=== PATIENT | female | born 1980 | race Caucasian/White ===

== ENCOUNTER 2017-05-10 09:26 | Inpatient (IN) | payer MEDICAID ==
[2017-05-10] MEDS ORDERED: MISOPROSTOL 200 MCG TAB PR ×2 (10:00→15:30)
[2017-05-10] MEDS ORDERED: CARBOPROST 250 MCG INJ IM ×2 (10:00→15:30)
[2017-05-10] MEDS ORDERED: METHYLERGONOVINE 0.2 MG INJ IM ×2 (10:00→15:30)
[2017-05-10 10:14] LABS: ADD MAN DIFF? NO
[2017-05-10 10:17] LABS: BASOPHILS % 0.2 % (0.0-2.0); EOSINOPHILS % 0.2 % (0.0-7.0); HEMATOCRIT 39.5 % (37.0-47.0); HEMOGLOBIN 13.5 g/dl (12.0-16.0); LYMPHOCYTES # 1.3 10^3/ul (0.8-2.9); LYMPHOCYTES % 9.8 % (15.0-51.0); MEAN CORPUSCULAR HEMOGLOBIN 30.9 pg (29.0-33.0); MEAN CORPUSCULAR HGB CONC 34.2 g/dl (32.0-37.0); MEAN CORPUSCULAR VOLUME 90.4 fl (82.0-101.0); MEAN PLATELET VOLUME 10.5 fl (7.4-10.4); MONOCYTE # 0.6 10^3/ul (0.3-0.9); MONOCYTES % 4.6 % (0.0-11.0); NEUTROPHIL # 11.2 10^3/ul (1.6-7.5); NEUTROPHILS % 84.6 % (39.0-77.0); PLATELET COUNT 192 10^3/UL (140-415); RED BLOOD COUNT 4.37 10^6/ul (4.20-5.40); RED CELL DISTRIBUTION WIDTH 13.3 % (11.5-14.5)
[2017-05-10 10:17] LABS: WHITE BLOOD COUNT 13.2 10^3/ul (4.8-10.8)
[2017-05-10] MEDS: LACTATED RINGER'S 1,000 ML IV ×3 (10:18→23:13)
[2017-05-10] MEDS ORDERED: TERBUTALINE 1 MG/ML INJ SC (10:30)
[2017-05-10] MEDS ORDERED: ONDANSETRON 4 MG INJ ×2 (10:35→11:03)
[2017-05-10] MEDS ORDERED: CITRIC ACID/SODIUM CITRATE 15 ML CUP ×2 (10:35→10:36)
[2017-05-10 10:36] LABS: INR 0.87; PROTIME 11.9 Sec (11.9-14.9); PT RATIO 0.9
[2017-05-10] MEDS: CITRIC ACID/SODIUM CITRATE 15 ML CUP PO (10:37)
[2017-05-10 10:38] LABS: PARTIAL THROMBOPLASTIN TIME 23.5 Sec (25.0-35.0)
[2017-05-10] MEDS ORDERED: KETOROLAC 30 MG INJ ×2 (11:03→16:50)
[2017-05-10] MEDS ORDERED: OXYTOCIN 30 UNITS/LR 500 ML IV ×3 (11:03→15:30)
[2017-05-10] MEDS ORDERED: METOCLOPRAMIDE 10 MG INJ ×2 (11:03→16:14)
[2017-05-10] MEDS ORDERED: morphine SULFATE/PF (10 MG/10 ML) INJ (11:03)
[2017-05-10] MEDS ORDERED: morphine 4 MG/ML VIAL IV (12:30)
[2017-05-10] MEDS ORDERED: HYDROmorphONE (0.2 MG/ML) 10ML SYG IV ×3 (12:30)
[2017-05-10] MEDS ORDERED: morphine 2 MG INJ IV ×2 (12:30)
[2017-05-10] MEDS ORDERED: NALOXONE (0.4 MG/ML) INJ IV (12:30)
[2017-05-10] MEDS ORDERED: DIPHENHYDRAMINE 50 MG INJ IV (12:30)
[2017-05-10 13:05] LABS: HEPATITIS B SURFACE ANTIGEN NEGATIVE (NEGATIVE)
[2017-05-10] MEDS: ONDANSETRON 4 MG INJ IV ×2 (14:40→15:14)
[2017-05-10] MEDS: OXYTOCIN 30 UNITS/LR 500 ML IV ×2 (14:44→15:13)
[2017-05-10] MEDS: CEFAZOLIN 2 GM/50 ML (PMX) 50 ML IV (15:09)
[2017-05-10 15:29] LABS: RAPID PLASMA REAGIN NONREACTIVE (NR)
[2017-05-10] MEDS: METOCLOPRAMIDE 10 MG INJ IV (16:18)
[2017-05-10 16:36] LABS: ADD MAN DIFF? NO
[2017-05-10 16:39] LABS: WHITE BLOOD COUNT 15.9 10^3/ul (4.8-10.8)
[2017-05-10 16:39] LABS: BASOPHILS % 0.1 % (0.0-2.0); EOSINOPHILS % 0.1 % (0.0-7.0); HEMATOCRIT 36.6 % (37.0-47.0); HEMOGLOBIN 12.4 g/dl (12.0-16.0); LYMPHOCYTES # 1.5 10^3/ul (0.8-2.9); LYMPHOCYTES % 9.2 % (15.0-51.0); MEAN CORPUSCULAR HEMOGLOBIN 30.5 pg (29.0-33.0); MEAN CORPUSCULAR HGB CONC 33.9 g/dl (32.0-37.0); MEAN CORPUSCULAR VOLUME 90.1 fl (82.0-101.0); MEAN PLATELET VOLUME 10.9 fl (7.4-10.4); MONOCYTES % 6.3 % (0.0-11.0); NEUTROPHIL # 13.3 10^3/ul (1.6-7.5); NEUTROPHILS % 83.6 % (39.0-77.0); PLATELET COUNT 175 10^3/UL (140-415); RED BLOOD COUNT 4.06 10^6/ul (4.20-5.40); RED CELL DISTRIBUTION WIDTH 13.3 % (11.5-14.5)
[2017-05-10] MEDS: KETOROLAC 30 MG INJ IV (16:55)
[2017-05-10] MEDS: LANOLIN 7 GM TUBE TOP (18:24)
[2017-05-10] MEDS: glyBURIDE 2.5 MG TAB PO (21:47)
[2017-05-11] MEDS: KETOROLAC 30 MG INJ IV (05:10)
[2017-05-11] MEDS: LACTATED RINGER'S 1,000 ML IV ×3 (08:05→23:13)
[2017-05-11] MEDS: HYDROCODONE/APAP (5/325) TAB PO (11:24)
[2017-05-11] MEDS: IBUPROFEN 600 MG TAB PO ×3 (11:24→23:18)
[2017-05-11] MEDS: INFLUENZA VIRUS VACCINE 0.5 ML (DISPENSING) IM* (15:17)
[2017-05-11] MEDS: OXYCODONE/ACETAMINOPHEN (5/325) TAB PO (17:00)
[2017-05-11] MEDS: glyBURIDE 2.5 MG TAB PO (21:12)
[2017-05-12] MEDS: IBUPROFEN 600 MG TAB PO ×3 (05:34→17:55)
[2017-05-12] MEDS: HYDROCODONE/APAP (5/325) TAB PO (05:34)
[2017-05-12] MEDS: LACTATED RINGER'S 1,000 ML IV ×3 (15:13→23:00)
[2017-05-12] MEDS: glyBURIDE 2.5 MG TAB PO (20:58)
[2017-05-13] MEDS: IBUPROFEN 600 MG TAB PO ×3 (00:59→11:41)
[2017-05-13] MEDS: LACTATED RINGER'S 1,000 ML IV (06:48)
[2017-05-13] MEDS: DIPHTH/TET/ACEL PERTUSS (ADULT) 0.5 ML VIAL IM* (11:42)
[2017-05-13] MEDS: MEASLES,MUMPS,RUBELLA VACCINE INJ SC* (11:43)
[2017-05-14] MEDS ORDERED: INFLUENZA VIRUS VACCINE 0.5 ML (DISPENSING) IM* (09:00)
== END 2017-05-13 16:27 | disposition home or self-care (01) | DRG 766 ==
LOC: OBT 09:26 → L-D 09:26 → OBT 09:53 → L-D 09:52 → PP1 17:35
PROVIDERS: Obstetrics & Gynecology
PROC: 10D00Z1 Extraction of Products of Conception, Low, Open Approach (ICD-10-PCS; principal; 2017-05-10)
PROC: 3E033VJ Introduction of Other Hormone into Peripheral Vein, Percutaneous Approach (ICD-10-PCS; 2017-05-10)
DX: O34.211 Maternal care for low transverse scar from previous cesarean delivery (principal); O24.429 Gestational diabetes mellitus in childbirth, unspecified control; Z37.0 Single live birth; Z3A.37 37 weeks gestation of pregnancy
CPT/HCPCS: 36415; 82962; 85025; 85610; 85730; 86592; 86850; 86900; 86901; 87340; 90686; 90715; 99464